=== PATIENT | female | born 1995 | race Caucasian/White ===

== ENCOUNTER 2021-02-03 04:29 | Emergency (ER) | payer OTHER ==
[~2021-02-03] VITALS: Ht 157.5 cm; Wt 94.3 kg
[2021-02-03] MEDS ORDERED: MEDI-MECLIZINE25 MG PO (06:37)
== END 2021-02-03 06:48 | disposition home or self-care (01) ==
LOC: ER 04:29
DX: R42 Dizziness and giddiness (principal); Z03.818 Encounter for observation for suspected exposure to other biological agents ruled out